=== PATIENT | female | born 1950 | race Caucasian/White ===

== ENCOUNTER → 2016-06-09 10:26 | Outpatient (CLI) | payer MEDICARE, MEDICAID ==
[~2016-06-09 10:26] MED LIST: BENZTROPINE ME0.5 MG PO; DESERYL100 MG PO; FLUTICASONE PRO16 GM NASAL; INVEGA SUS39 MG/0.25 IM; INVEGA6 MG/BLIST; LAMICTAL100 MG PO; NAPROSYN500 MG PO; PEPCID AC20 MG PO; PROVENTIL HFA6.7 GM INH
[2016-06-10 09:14] VITALS: BMI 25.8
== END | disposition home or self-care (01) ==
LOC: D.US 10:26
DX: D69.49 Other primary thrombocytopenia (principal)

== ENCOUNTER 2016-06-10 06:31 | Outpatient (CLI) | payer MEDICARE, MEDICAID ==
[~2016-06-10] VITALS: Ht 162.6 cm; Wt 68.2 kg
[2016-06-10 07:22] LABS: BASOPHILS 0.5 % (0-2); EOSINOPHILS 3.8 % (0-7); HEMATOCRIT 42.9 % (36.0-48.0); HEMOGLOBIN 14.4 g/dL (12-16); IMMATURE GRANULOCYTES 0.2 % (0-5); LYMPHOCYTES 23.4 % (15-50); MCH 33.3 pg (26.0-34.0); MCHC 33.6 g/dL (31.0-37.0); MCV 99.3 fL (80.0-100.0); MEAN PLATELET VOLUME 11.1 fL (7.4-10.4); MONOCYTES 9.5 % (2-11); NEUTROPHILS 62.6 % (40-80); RBC 4.32 10x6/uL (4.00-5.40); RDW 13.5 % (11.5-14.5); WBC 6.1 10x3/uL (4.8-10.8)
[2016-06-10 07:23] LABS: PLATELET COUNT 101 10x3/uL (130-400)
[2016-06-10 07:31] LABS: ANION GAP 13.6 mmol/L (8-16); CALCIUM 9.1 mg/dL (8.5-10.1); CARBON DIOXIDE 26.7 mmol/L (21.0-32.0); CREATININE - SERUM 1.9 mg/dL (0.6-1.3); POTASSIUM - SERUM 4.3 mmol/L (3.5-5.1)
[2016-06-10 07:32] LABS: APTT 33.1 SECONDS (22.8-39.4); INR 1.06 (0.85-1.17); PROTIME 13.6 SECONDS (11.6-15.0)
[2016-06-10] MEDS ORDERED: INVEGA SUS39 MG/0.25 IM (08:57)
[2016-06-10] MEDS ORDERED: FLUTICASONE PRO16 GM NASAL (08:58)
[2016-06-10] MEDS ORDERED: PROVENTIL HFA6.7 GM INH (08:58)
[2016-06-10] MEDS ORDERED: DESERYL100 MG PO (08:59)
[2016-06-10] MEDS ORDERED: INVEGA6 MG/BLIST (08:59)
[2016-06-10] MEDS ORDERED: NAPROSYN500 MG PO (09:00)
[2016-06-10] MEDS ORDERED: BENZTROPINE ME0.5 MG PO (09:00)
[2016-06-10] MEDS ORDERED: PEPCID AC20 MG PO (09:01)
[2016-06-10] MEDS ORDERED: LAMICTAL100 MG PO (09:01)
[2016-06-10 09:14] VITALS: BP 107/59; Ht 162.6 cm; Wt 68.2 kg
--- NOTE | 2016-06-10 10:10 | NUR ---
RECEIVED FROM IR. DROWSY, RESPONDS TO TACTILE STIMULI. VITAL SIGNS STABLE, SEE FREQUENT VITAL SIGN SHEET.
--- NOTE | 2016-06-10 12:45 | NUR ---
SISTER HERE. DISCHARGED HOME VIA .
== END 2016-06-10 12:45 | disposition home or self-care (01) ==
LOC: D.OPS 06:31 → D.CT 09:00 → D.OPS 09:00
PROVIDERS: General Practice
DX: D69.6 Thrombocytopenia, unspecified (principal)

== ENCOUNTER → 2016-06-29 16:40 | Outpatient (CLI) | payer MEDICARE ==
[2016-06-10 09:14] VITALS: BMI 25.8
== END | disposition home or self-care (01) ==
LOC: D.MAMMO 11:45
DX: Z12.31 Encounter for screening mammogram for malignant neoplasm of breast (principal)

== ENCOUNTER 2017-06-20 13:25 | Emergency (ER) | payer MEDICARE, MEDICAID ==
[2016-06-10 09:14] VITALS: BMI 25.8
== END 2017-06-20 17:00 | disposition home or self-care (01) ==
LOC: D.ER 13:25
DX: S00.12XA Contusion of left eyelid and periocular area, initial encounter (principal); S00.11XA Contusion of right eyelid and periocular area, initial encounter; W10.9XXA Fall (on) (from) unspecified stairs and steps, initial encounter; Y93.89 Activity, other specified; Y92.254 Theater (live) as the place of occurrence of the external cause; M54.2 Cervicalgia; M54.5 Low back pain; S02.2XXA Fracture of nasal bones, initial encounter for closed fracture; F17.200 Nicotine dependence, unspecified, uncomplicated

== ENCOUNTER 2019-06-02 10:23 | Emergency (ER) | payer MEDICARE ==
[~2019-06-02] VITALS: Ht 162.6 cm; Wt 65.9 kg
[2019-06-02 10:24] VITALS: Ht 162.6 cm; Wt 65.9 kg
[2019-06-02] MEDS ORDERED: ULTRAM50 MG PO (12:19)
[2019-06-02] MEDS ORDERED: VOLTAREN25 MG PO (12:19)
[2019-06-02 14:25] VITALS: BP 139/83
== END 2019-06-02 14:27 | disposition home or self-care (01) ==
LOC: D.ER 10:23
DX: S22.32XA Fracture of one rib, left side, initial encounter for closed fracture (principal); W18.30XA Fall on same level, unspecified, initial encounter; Y93.9 Activity, unspecified; Y92.9 Unspecified place or not applicable; S09.90XA Unspecified injury of head, initial encounter; J44.9 Chronic obstructive pulmonary disease, unspecified; K21.9 Gastro-esophageal reflux disease without esophagitis; S00.93XA Contusion of unspecified part of head, initial encounter

== ENCOUNTER 2019-08-19 13:42 | Emergency (ER) | payer MEDICARE ==
[~2019-08-19] VITALS: Ht 162.6 cm; Wt 65.9 kg
[~2019-08-19 13:42] MED LIST changes: +ULTRAM50 MG PO; +VOLTAREN25 MG PO
[2019-08-19 13:46] VITALS: Ht 162.6 cm; Wt 65.9 kg
[2019-08-19 15:30] VITALS: BP 125/77
== END 2019-08-19 15:30 | disposition home or self-care (01) ==
LOC: D.ER 13:42
DX: R51 Headache (principal); Z98.2 Presence of cerebrospinal fluid drainage device; J44.9 Chronic obstructive pulmonary disease, unspecified; K21.9 Gastro-esophageal reflux disease without esophagitis; Z72.0 Tobacco use

== ENCOUNTER 2020-06-17 13:15 | Outpatient (CLI) | payer MEDICARE ==
[2019-08-19 13:46] VITALS: BMI 24.9
== END 2020-06-17 23:59 | disposition home or self-care (01) ==
LOC: D.MAMMO 13:15
PROVIDERS: ATTEND Emergency Medicine
DX: Z12.31 Encounter for screening mammogram for malignant neoplasm of breast (principal)

== ENCOUNTER 2020-07-16 18:00 | Outpatient (CLI) | payer MEDICARE ==
[2019-08-19 13:46] VITALS: BMI 24.9
== END 2020-07-16 23:59 | disposition home or self-care (01) ==
LOC: D.MAMMO 18:00
PROVIDERS: ATTEND Emergency Medicine
DX: R92.8 Other abnormal and inconclusive findings on diagnostic imaging of breast (principal)